=== PATIENT | male | born 1935 | race African-American/Black ===

== ENCOUNTER 2017-04-22 21:57 | Emergency (ER) | payer OTHER, MEDICARE ==
[2017-04-23] MEDS ORDERED: TORADOL IM ONE (04:01)
[2017-04-23] MEDS ORDERED: FLEXERIL PO ONE (04:01)
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
[2017-04-23 04:34] VITALS: BP 164/85
== END 2017-04-23 04:32 | disposition home or self-care (01) ==
LOC: ED 21:57
DX: R07.89 Other chest pain (principal); M25.519 Pain in unspecified shoulder; M54.89 Other dorsalgia; I10 Essential (primary) hypertension; E11.9 Type 2 diabetes mellitus without complications; V43.52XA Car driver injured in collision with other type car in traffic accident, initial encounter; Y93.89 Activity, other specified; Y92.89 Other specified places as the place of occurrence of the external cause; Y99.8 Other external cause status
CPT/HCPCS: 93005; 93010; 96372; 99283; J1885